=== PATIENT | female | born 1990 | race Caucasian/White ===

== ENCOUNTER 2023-01-13 17:20 | Inpatient (IN) | payer BC ==
[2023-01-13 18:41] VITALS: BMI 29.5
[2023-01-13] MEDS ORDERED: Ondansetron PF 4 MG/2 ML Vial IVP PRN (19:21)
[2023-01-13] MEDS ORDERED: Ondansetron ODT 4 MG TAB PO PRN (19:21)
[2023-01-13 19:42] LABS: #Eosinphils 0.3 thou/uL (0.0-0.7); #Monocytes 0.7 thou/uL (0.11-0.59); #Neutrophils 6.8 thou/uL (1.40-6.50); %Basophils 0.4 % (0.0-1.0); %Eosinophils 2.3 % (0.0-10.0); %Monocytes 6.2 % (0.0-10.0); %Neutrophils 62.8 % (42.0-75.0); Hematocrit 39.1 % (36.0-47.0); Hemoglobin 12.8 g/dL (12.0-16.0); Mean Corpuscular HGB CONC 32.7 g/dL (32.0-36.0); Mean Corpuscular Hemoglobin 28.4 pg (27.0-31.0); Mean Corpuscular Volume 86.9 fl (78.0-98.0); Mean Platelet Volume 11.1 fL (7.4-10.4); Platelet Count 286 10x3/uL (130-400); RBC Distribution Width 12.8 % (11.5-14.5); White Blood Cell (WBC) Count 10.9 10x3/uL (4.8-10.8)
[2023-01-13 20:11] LABS: ALT (SGPT) 17 U/L (8-55); AST (SGOT) 13 U/L (5-34); Albumin 4.6 g/dL (3.5-5.0); Alkaline Phosphatase 36 U/L (40-110); Anion Gap 11 mmol/L (10-20); BUN (Urea Nitrogen) 11 mg/dL (7.0-18.7); Bilirubin, Total 0.4 mg/dL (0.2-1.2); Calc. Creatinine Clearance 130 mL/min (70-130); Calcium 9.2 mg/dL (7.8-10.44); Carbon Dioxide 24 mmol/L (22-29); Chloride 108 mmol/L (98-107); Estimated GFR 110; Globulin 2.3 g/dL (2.4-3.5); Glucose 90 mg/dL (70-105); Potassium 3.5 mmol/L (3.5-5.1); Protein, Total 6.9 g/dL (6.0-8.3); Sodium 139 mmol/L (136-145)
[2023-01-13] MEDS: Ketorolac Tromethamine 30 MG/ML VIAL IVP PRN (20:38)
[2023-01-13] MEDS: Acetaminophen 325 MG TAB PO PRN (20:40)
[2023-01-13] MEDS: Phenazopyridine HCl 100 MG TAB PO PRN (23:52)
[2023-01-14] MEDS: Acetaminophen 325 MG TAB PO PRN (01:25)
[2023-01-14] MEDS: Morphine 2 MG/ML VIAL SLOW IVP PRN ×3 (01:28→20:02)
[2023-01-14] MEDS: Ketorolac Tromethamine 30 MG/ML VIAL IVP PRN (08:07)
[2023-01-14] MEDS: Phenazopyridine HCl 100 MG TAB PO PRN ×4 (08:11→20:02)
[2023-01-14] MEDS ORDERED: Acetaminophen 500 MG TAB ONE (11:44)
[2023-01-14] MEDS: cefTRIAXone\\ROCEPHIN 1 GM in Sodium Chloride 0.9% 100 ML IVPB SCH (11:47)
[2023-01-14] MEDS ORDERED: Famotidine/PF 20 mg/2ml Vial ONE (12:19)
[2023-01-14] MEDS ORDERED: SUGAMMADEX SODIUM 200 MG/2 ML VIAL ONE (12:19)
[2023-01-14] MEDS ORDERED: fentaNYL 50 mcg/mL 1 mL Vial ONE (12:19)
[2023-01-14] MEDS ORDERED: Dexamethasone 20 MG/5 ML VIAL ONE (13:26)
[2023-01-14] MEDS ORDERED: Lidocaine 1% PF 5 ML VIAL ONE (13:26)
[2023-01-14] MEDS ORDERED: PROPOFOL 200 MG/20 ML VIAL ONE (13:26)
[2023-01-14] MEDS ORDERED: Ondansetron PF 4 MG/2 ML Vial ONE (13:26)
[2023-01-14] MEDS ORDERED: Metoclopramide HCl 10 MG/2 ML VIAL ONE (13:26)
[2023-01-14] MEDS ORDERED: Meperidine HCl/PF 25 MG/ML VIAL SLOW IVP PRN (13:49)
[2023-01-14] MEDS ORDERED: Promethazine HCl 25 MG/ML VIAL IM PRN (13:49)
[2023-01-14] MEDS ORDERED: Ondansetron HCl/PF 4 MG/2 ML Vial IVP PRN (13:49)
[2023-01-15] MEDS: Morphine 2 MG/ML VIAL SLOW IVP PRN ×3 (00:06→11:18)
[2023-01-15] MEDS: Phenazopyridine HCl 100 MG TAB PO PRN ×3 (00:35→13:30)
[2023-01-15] MEDS: Ketorolac Tromethamine 30 MG/ML VIAL IVP PRN ×2 (02:30→09:10)
[2023-01-15 08:10] LABS: #Monocytes 0.9 thou/uL (0.11-0.59); #Neutrophils 15.8 thou/uL (1.40-6.50); %Basophils 0.1 % (0.0-1.0); %Lymphocytes 8.3 % (21.0-51.0); %Monocytes 5.1 % (0.0-10.0); %Neutrophils 86.1 % (42.0-75.0); Hematocrit 38.6 % (36.0-47.0); Hemoglobin 12.6 g/dL (12.0-16.0); Mean Corpuscular HGB CONC 32.6 g/dL (32.0-36.0); Mean Corpuscular Hemoglobin 28.3 pg (27.0-31.0); Mean Corpuscular Volume 86.5 fl (78.0-98.0); Mean Platelet Volume 11.5 fL (7.4-10.4); Platelet Count 312 10x3/uL (130-400); RBC Distribution Width 12.8 % (11.5-14.5); Red Blood Cell (RBC) Count 4.46 mill/uL (4.20-5.40); White Blood Cell (WBC) Count 18.4 10x3/uL (4.8-10.8)
[2023-01-15 08:34] LABS: Anion Gap 12 mmol/L (10-20); BUN (Urea Nitrogen) 11 mg/dL (7.0-18.7); Calc. Creatinine Clearance 125 mL/min (70-130); Calcium 8.8 mg/dL (7.8-10.44); Carbon Dioxide 22 mmol/L (22-29); Chloride 109 mmol/L (98-107); Estimated GFR 105; Glucose 98 mg/dL (70-105); Potassium 3.9 mmol/L (3.5-5.1); Sodium 139 mmol/L (136-145)
[2023-01-15] MEDS: cefTRIAXone\\ROCEPHIN 1 GM in Sodium Chloride 0.9% 100 ML IVPB SCH (11:22)
[2023-01-15] MEDS ORDERED: Oxybutynin 5 MG TAB PO PRN (13:01)
[2023-01-15] MEDS ORDERED: Tamsulosin HCl 0.4 MG CAP PO SCH (13:02)
[2023-01-15] MEDS ORDERED: Ketorolac Tromethamine 30 MG/ML VIAL IVP SCH (15:00)
[2023-01-15 15:16] VITALS: BP 107/66; TEMP 98
[2023-01-16] MEDS ORDERED: Tamsulosin HCl 0.4 MG CAP PO SCH (09:00)
== END 2023-01-15 15:46 | disposition home or self-care (01) | DRG 661 ==
LOC: T4-A 18:32
PROVIDERS: ADMIT Family Medicine; ATTEND Internal Medicine
PROC: 0T778DZ Dilation of Left Ureter with Intraluminal Device, Via Natural or Artificial Opening Endoscopic (ICD-10-PCS; principal; 2023-01-14)
PROC: BT1F1ZZ Fluoroscopy of Left Kidney, Ureter and Bladder using Low Osmolar Contrast (ICD-10-PCS; 2023-01-14)
DX: N13.6 Pyonephrosis (principal); F90.9 Attention-deficit hyperactivity disorder, unspecified type; Z79.899 Other long term (current) drug therapy; Z90.89 Acquired absence of other organs; Z87.891 Personal history of nicotine dependence
CPT/HCPCS: 36415; 74420; 80048; 80053; 85025; C2617; J0696; J1100; J1885; J2272; J2405; J2704; J2765; J3010; J3490; S0028

== ENCOUNTER 2023-01-19 11:38 | Outpatient (CLI) | payer BC ==
[2023-01-19 12:45] LABS: Bilirubin Neg (Negative); Blood, Urine 250 (Negative); Clarity Cloudy (Clear); Glucose, Urine (Dipstick) Normal (Negative); Ketone, Urine Negative (Negative); Leukocyte 500 (Negative); Nitrite Negative (Negative); Protein, Urine (Dipstick) 100 mg/dl (Neg-Trace); Urobilinogen Normal mg/dL (Less than 2)
[2023-01-19 13:12] LABS: BHCG - Serum Negative (NEGATIVE); Pregs Control Background? CLEAR/WHITE (CLR/WHITE); Pregs Control Bar Appear? YES (CONTROL BAR)
[2023-01-19 13:43] LABS: RBC/HPF Greater than 50 HPF (0-3)
[2023-01-19 13:44] LABS: Bacteria/HPF 2+ HPF (None Seen)
== END 2023-01-19 11:39 | disposition home or self-care (01) ==
LOC: LABBT 11:38
PROVIDERS: ATTEND Urology
DX: Z01.812 Encounter for preprocedural laboratory examination (principal); N20.1 Calculus of ureter
CPT/HCPCS: 81001; 84703

== ENCOUNTER 2023-01-20 11:12 | Day surgery (SDC) | payer BC ==
[2023-01-19 10:10] VITALS: BMI 29.5
[2023-01-20] MEDS ORDERED: fentaNYL 50 mcg/mL 1 mL Vial ONE ×2 (12:59→14:16)
[2023-01-20] MEDS ORDERED: Iopamidol 0 ML ONE (13:00)
[2023-01-20] MEDS ORDERED: cefTRIAXone (ROCEPHIN) 1 GM VIAL ONE (13:06)
[2023-01-20] MEDS ORDERED: Sodium Chloride 0.9% 100 ML ONE (13:06)
[2023-01-20] MEDS ORDERED: Dexamethasone 20 MG/5 ML VIAL ONE (13:29)
[2023-01-20] MEDS ORDERED: Lidocaine 1% PF 5 ML VIAL ONE (13:29)
[2023-01-20] MEDS ORDERED: PROPOFOL 200 MG/20 ML VIAL ONE (13:29)
[2023-01-20] MEDS ORDERED: Phenazopyridine HCl 100 MG TAB ONE (14:22)
[2023-01-20] MEDS ORDERED: Oxybutynin 5 MG TAB ONE (14:22)
[2023-01-20] MEDS ORDERED: fentaNYL PF 100 MCG/2 ML SYRINGE ONE (14:42)
[2023-01-20] MEDS ORDERED: HYDROcodone/Acetaminophen 5/325 mg Tablet ONE (15:57)
== END 2023-01-20 17:10 | disposition home or self-care (01) ==
LOC: SDC 11:12
PROVIDERS: ATTEND Urology
PROC: 0TC78ZZ Extirpation of Matter from Left Ureter, Via Natural or Artificial Opening Endoscopic (ICD-10-PCS; principal; 2023-01-20)
PROC: 0T768DZ Dilation of Right Ureter with Intraluminal Device, Via Natural or Artificial Opening Endoscopic (ICD-10-PCS; principal; 2023-01-20)
DX: N20.1 Calculus of ureter (principal)
CPT/HCPCS: 82365; 88300; C1769; C2617; J0696; J1100; J2704; J3010; J3490; Q9967

== ENCOUNTER 2023-05-03 15:32 | Outpatient (CLI) | payer BC | END 2023-05-03 15:33 | disposition home or self-care (01) | LOC: BICULT 15:32 | PROVIDERS: ATTEND Urology | DX: N20.0 Calculus of kidney (principal) | CPT/HCPCS: 76770 ==